=== PATIENT | male | born 1990 | race African-American/Black ===

== ENCOUNTER → 2021-12-30 | Outpatient (CLI) | payer OTHER ==
--- NOTE | 2021-12-30 08:42 | RAD ---
EXAM: XR CHEST 2V 12/30/2021 8:15 AM CLINICAL INDICATION: Asthma COMPARISON: None TECHNIQUE: PA and lateral views of the chest FINDINGS: The heart and mediastinum are normal. Lungs are well-expanded and clear. No consolidatio n, pleural effusion, or pneumothorax. Pulmonary vascularity is normal. The thoracic skeleton is int act. IMPRESSION: Normal chest radiograph. Electronically signed by: Jerrica Ware MD (12/30/2021 8:40 AM) [id number]
== END ==
LOC: RAD 08:04
PROVIDERS: ATTEND Internal Medicine Pulmonary Disease
DX: J45.909 Unspecified asthma, uncomplicated (principal)
CPT/HCPCS: 71046